=== PATIENT | male | born 1960 | race Caucasian/White ===

== ENCOUNTER 2018-05-20 01:22 | Emergency (ER) | payer BC ==
[2018-05-20] MEDS ORDERED: Aspirin Chewable 81 MG TAB ONE (01:48)
[2018-05-20 01:55] LABS: #Basophils 0.2 thou/uL (0.0-0.2); #Eosinphils 0.3 thou/uL (0.0-0.7); #Lymphocytes 4.1 thou/uL (1.20-3.40); #Monocytes 0.7 thou/uL (0.11-0.59); #Neutrophils 3.9 thou/uL (1.40-6.50); %Basophils 2.1 % (0.0-1.0); %Eosinophils 3.3 % (0.0-10.0); %Lymphocytes 44.6 % (21.0-51.0); %Monocytes 7.1 % (0.0-10.0); %Neutrophils 42.9 % (42.0-75.0); Hemoglobin 17.5 g/dL (14.0-18.0); Mean Corpuscular HGB CONC 34.6 g/dL (32.0-36.0); Mean Corpuscular Hemoglobin 30.9 pg (27.0-31.0); Mean Corpuscular Volume 89.5 fL (78.0-98.0); Platelet Count 296 thou/uL (130-400); RBC Distribution Width 11.2 % (11.5-14.5); Red Blood Cell (RBC) Count 5.65 mill/uL (4.70-6.10); White Blood Cell (WBC) Count 9.1 thou/uL (4.8-10.8)
[2018-05-20 02:06] LABS: ALT (SGPT) 30 U/L (8-55); AST (SGOT) 29 U/L (5-34); Albumin 4.7 g/dL (3.5-5.0); Alkaline Phosphatase 95 U/L (40-150); Anion Gap 14 mmol/L (10-20); BUN (Urea Nitrogen) 15 mg/dL (8.4-25.7); Bilirubin, Total 0.7 mg/dL (0.2-1.2); Calc. Creatinine Clearance 0 mL/min (70-130); Calcium 9.9 mg/dL (7.8-10.44); Chloride 102 mmol/L (98-107); Estimated GFR-MDRD 78; Globulin 3.6 g/dL (2.4-3.5); Glucose 106 mg/dL (70-105); Magnesium 2.3 mg/dL (1.6-2.6); Potassium 3.3 mmol/L (3.5-5.1); Protein, Total 8.3 g/dL (6.0-8.3); Sodium 140 mmol/L (136-145)
[2018-05-20 02:08] LABS: Carbon Dioxide 27 mmol/L (22-29)
[2018-05-20] MEDS ORDERED: Potassium Chloride 20 MEQ TAB ONE (02:09)
== END 2018-05-20 02:34 | disposition short-term general hospital (02) ==
LOC: BURERS 01:22
DX: R00.0 Tachycardia, unspecified (principal); R07.89 Other chest pain; Z87.891 Personal history of nicotine dependence
CPT/HCPCS: 80053; 83735; 83880; 84443; 84484; 85025; 93005

== ENCOUNTER 2018-12-08 08:55 | Emergency (ER) | payer BC ==
--- NOTE | 2018-12-08 12:07 | RAD ---
EXAM: 4 views of the right knee HISTORY: Knee pain after trip and fall COMPARISON: None FINDINGS: A small knee effusion is seen. There is no evidence of acute fracture or dislocation. Mild tricompartmental osteophytes are seen. No soft tissue swelling is present. IMPRESSION: Mild right knee osteoarthritis without acute osseous abnormality.
== END 2018-12-08 09:37 | disposition home or self-care (01) ==
LOC: BURERS 08:55
DX: S80.01XA Contusion of right knee, initial encounter (principal); I48.91 Unspecified atrial fibrillation; Z87.891 Personal history of nicotine dependence; Z79.82 Long term (current) use of aspirin; W10.9XXA Fall (on) (from) unspecified stairs and steps, initial encounter

== ENCOUNTER 2020-01-04 15:09 | Emergency (ER) | payer BC | END 2020-01-04 15:42 | disposition home or self-care (01) | LOC: BURERS 15:09 | DX: K43.9 Ventral hernia without obstruction or gangrene (principal); I48.91 Unspecified atrial fibrillation; Z87.891 Personal history of nicotine dependence | CPT/HCPCS: 99283 ==

== ENCOUNTER 2020-05-10 02:47 | Emergency (ER) | payer BC ==
[2020-05-10] MEDS ORDERED: Aspirin Chewable 81 MG TAB ONE (03:16)
[2020-05-10] MEDS ORDERED: Enoxaparin Sodium 100 MG/ML SYRINGE ONE (03:16)
[2020-05-10 03:22] LABS: #Basophils 0.1 thou/uL (0.0-0.2); #Eosinphils 0.3 thou/uL (0.0-0.7); #Lymphocytes 3.1 thou/uL (1.20-3.40); #Monocytes 0.5 thou/uL (0.11-0.59); %Basophils 1.8 % (0.0-1.0); %Eosinophils 4.2 % (0.0-10.0); %Lymphocytes 44.2 % (21.0-51.0); %Monocytes 7.3 % (0.0-10.0); %Neutrophils 42.4 % (42.0-75.0); Hemoglobin 17.5 g/dL (14.0-18.0); Mean Corpuscular HGB CONC 34.8 g/dL (32.0-36.0); Mean Corpuscular Hemoglobin 31.4 pg (27.0-31.0); Mean Corpuscular Volume 90.1 fL (78.0-98.0); Mean Platelet Volume 6.5 fL (7.4-10.4); Platelet Count 237 thou/uL (130-400); RBC Distribution Width 10.7 % (11.5-14.5); Red Blood Cell (RBC) Count 5.59 mill/uL (4.70-6.10)
[2020-05-10 03:24] LABS: ALT (SGPT) 23 U/L (8-55); AST (SGOT) 28 U/L (5-34); Albumin 3.4 g/dL (3.5-5.0); Alkaline Phosphatase 75 U/L (40-110); Anion Gap 15 mmol/L (10-20); BUN (Urea Nitrogen) 14 mg/dL (8.4-25.7); Bilirubin Negative (Negative); Bilirubin, Total 0.9 mg/dL (0.2-1.2); Blood, Urine Negative (Negative); Calc. Creatinine Clearance 0 mL/min (70-130); Calcium 8.9 mg/dL (7.8-10.44); Carbon Dioxide 24 mmol/L (22-29); Chloride 103 mmol/L (98-107); Clarity Clear (Clear); Globulin 4.2 g/dL (2.4-3.5); Glucose 128 mg/dL (70-105); Glucose, Urine (Dipstick) Negative (Negative); Ketone, Urine Negative (Negative); Leukocyte Negative (Negative); Nitrite Negative (Negative); Potassium 3.4 mmol/L (3.5-5.1); Protein, Total 7.6 g/dL (6.0-8.3); Protein, Urine (Dipstick) Negative (Neg-Trace); Sodium 139 mmol/L (136-145); Urobilinogen 0.2 mg/dL (Less than 2)
[2020-05-10] MEDS ORDERED: Diltiazem 125 MG/25 ML ONE (03:36)
[2020-05-10 03:38] LABS: Amphetamine Not Detected (NotDetected); Barbiturates Screen Not Detected (NotDetected); Benzodiazepine Screen Not Detected (NotDetected); Cocaine Metabolite Screen Not Detected (NotDetected); Medtox Control Line Valid? VALID (VALID); Methadone Not Detected (NotDetected); Methamphetamine Not Detected (NotDetected); Opiate Screen Not Detected (NotDetected); Oxycodone Screen Not Detected (NotDetected); Phencyclidine (PCP) Not Detected (NotDetected); THC/Cannabinoid Screen Not Detected (NotDetected); Tricyclic Screen Not Detected (NotDetected)
[2020-05-10] MEDS ORDERED: Metoprolol Tartrate 5 MG/5 ML VIAL ONE (05:24)
[2020-05-10 06:15] LABS: Troponin I 0.011 ng/mL (< 0.028)
[2020-05-10] MEDS ORDERED: Metoprolol Tartrate 25 MG TAB PO SCH (06:30)
== END 2020-05-10 08:45 | disposition home or self-care (01) ==
LOC: BURERS 02:47
DX: I48.91 Unspecified atrial fibrillation (principal); Z87.891 Personal history of nicotine dependence
CPT/HCPCS: 36415; 71045; 80053; 80306; 81003; 83605; 84443; 84484; 85025; 93005; 94760; 96365; 96366; 96372; 96375; 96376; J1650

== ENCOUNTER 2020-12-03 00:15 | Emergency (ER) | payer BC ==
[2020-12-03] MEDS ORDERED: Aspirin Chewable 81 MG TAB ONE (00:34)
[2020-12-03] MEDS ORDERED: Diltiazem 125 MG/25 ML ONE (00:56)
[2020-12-03 01:05] LABS: ALT (SGPT) 30 U/L (8-55); AST (SGOT) 25 U/L (5-34); Albumin 4.1 g/dL (3.5-5.0); Alkaline Phosphatase 89 U/L (40-110); Anion Gap 16 mmol/L (10-20); BUN (Urea Nitrogen) 20 mg/dL (8.4-25.7); Bilirubin, Total 0.5 mg/dL (0.2-1.2); CK (CPK) 338 U/L (30-200); Calc. Creatinine Clearance 0 mL/min (70-130); Carbon Dioxide 24 mmol/L (22-29); Chloride 102 mmol/L (98-107); Globulin 3.4 g/dL (2.4-3.5); Glucose 114 mg/dL (70-105); Potassium 3.6 mmol/L (3.5-5.1); Protein, Total 7.5 g/dL (6.0-8.3); Sodium 138 mmol/L (136-145)
[2020-12-03 01:48] LABS: Hemoglobin 16.7 g/dL (14.0-18.0); Mean Corpuscular HGB CONC 34.1 g/dL (32.0-36.0); Mean Corpuscular Hemoglobin 31.6 pg (27.0-31.0); Mean Corpuscular Volume 92.7 fL (78.0-98.0); Mean Platelet Volume 6.1 fL (7.4-10.4); Platelet Count 251 thou/uL (130-400); RBC Distribution Width 11.2 % (11.5-14.5); Red Blood Cell (RBC) Count 5.28 mill/uL (4.70-6.10); White Blood Cell (WBC) Count 8.5 thou/uL (4.8-10.8)
[2020-12-03] MEDS ORDERED: Enoxaparin Sodium 100 MG/ML SYRINGE ONE (01:53)
[2020-12-03 02:29] LABS: Eosinophils 1 % (0-10); Lymphocytes 32 % (21-51); MDiff Complete? YES; Monocytes 5 % (0-10); Neutrophil 60 % (42-75); Platelet Morphology Comment Appears Adequate; RBC Morphology Normal; Reactive Lymphocytes 2 % (0-10)
[2020-12-03 03:04] LABS: SARS-CoV-2 NAA Rapid Test Not Detected (NotDetected)
== END 2020-12-03 07:40 | disposition home or self-care (01) ==
LOC: BURERS 00:15
DX: I48.91 Unspecified atrial fibrillation (principal); Z20.822 Contact with and (suspected) exposure to COVID-19; Z87.891 Personal history of nicotine dependence
CPT/HCPCS: 71045; 80053; 82550; 84484; 85025; 93005; 96365; 96366; 96372; 96376; J1650; U0002